=== PATIENT | male | born 1960 | race Hispanic/Latino ===

== ENCOUNTER 2023-04-06 13:55 | Emergency (ER) | payer SELFPAY ==
[~2023-04-06] VITALS: Ht 170.2 cm; Wt 74.8 kg
[~2023-04-06 13:55] MED LIST: CRESTOR40 MG PO; FERROUS SULF325 M3 PO; GLUCOVANCE5 MG/500 M PO; JANUVIA100 MG PO; LISINOPRIL40 MG PO; METFORMIN HCL1000 MG PO; NYSTATIN100000 M4 TOP; ZESTRIL5 M1 PO
[2023-04-06] MEDS ORDERED: KEFLEX500 MG PO (16:17)
[2023-04-06 17:28] VITALS: BP 143/77
== END 2023-04-06 17:28 | disposition home or self-care (01) | DRG 603 ==
LOC: ED 13:55
DX: L03.032 Cellulitis of left toe (principal); E11.9 Type 2 diabetes mellitus without complications